=== PATIENT | male | born 1985 | race Caucasian/White ===

== ENCOUNTER 2016-12-20 06:53 | Emergency (ER) | payer BC ==
[~2016-12-20] VITALS: Ht 193 cm; Wt 111.1 kg
[2016-12-20 07:03] VITALS: BP 135/91
[2016-12-20] MEDS ORDERED: TETRACAINE 0.5% OPHTH SOLN 4ML OD ONE (07:30)
[2016-12-20] MEDS ORDERED: FLUORESCEIN OPHTH 1 MG STRIP OD ONE (07:30)
[2016-12-20] MEDS ORDERED: GENT3OPD OD (07:44)
[2016-12-20] MEDS ORDERED: IBUPROFEN 800 MG TAB PO ONE (07:45)
[2016-12-20] MEDS ORDERED: GENTAMICIN 0.3% OPHTH SOL 5 ML BTL OD ONE (07:45)
== END 2016-12-20 07:58 | disposition home or self-care (01) ==
LOC: M ED 07:39
DX: S05.01XA Injury of conjunctiva and corneal abrasion without foreign body, right eye, initial encounter (principal); X58.XXXA Exposure to other specified factors, initial encounter; Y92.89 Other specified places as the place of occurrence of the external cause; Y93.89 Activity, other specified; Y99.0 Civilian activity done for income or pay

== ENCOUNTER → 2019-03-08 | Outpatient (REF) | payer BC ==
[~2019-03-08] MED LIST: GENT0.3S36 OD
== END ==
LOC: M LAB REF 19:29
PROVIDERS: ATTEND Physician Assistant Medical
DX: J02.9 Acute pharyngitis, unspecified (principal)

== ENCOUNTER 2024-01-19 13:40 | Emergency (ER) | payer OTHER ==
[~2024-01-19] VITALS: Ht 190.5 cm; Wt 150.0 kg
[2024-01-19 15:34] LABS: BASO % 0.4 % (0.0-1.0); EOS # 0.1 10^3/uL (0.0-0.5); EOS % 2.9 % (0.0-3.0); HEMATOCRIT 39.4 % (42.0-52.0); HEMOGLOBIN 13.5 g/dl (13.5-17.5); LYMPH # 0.6 10^3/uL (1.5-5.0); LYMPH % 11.7 % (24.0-44.0); MEAN CORPUSCULAR HEMOGLOBIN 28.7 pg (27.0-33.0); MEAN CORPUSCULAR HGB CONC 34.3 g/dl (32.0-36.5); MEAN CORPUSCULAR VOLUME 83.8 fl (80.0-96.0); MONO # 0.9 10^3/uL (0.0-0.8); MONO % 19.1 % (2.0-8.0); NEUTROPHILS # 3.2 10^3/uL (1.5-8.5); NEUTROPHILS % 65.1 % (36.0-66.0); PLATELET COUNT, AUTOMATED 259 10^3/uL (150-450); WHITE BLOOD COUNT 4.9 10^3/uL (4.0-10.0)
[2024-01-19 15:56] LABS: CK-MB VALUE MASS 4.8 NG/ML (<3.6)
[2024-01-19 15:58] LABS: BLOOD UREA NITROGEN 14 MG/DL (9-23); CALCIUM LEVEL 9.1 MG/DL (8.5-10.1); CARBON DIOXIDE LEVEL 27 MMOL/L (20-31); CHLORIDE LEVEL 104 MMOL/L (98-107); CPK CREATINE PHOSPHOKINASE 172 U/L (46-171); CREATININE FOR GFR 0.94 MG/DL (0.70-1.30); GLOMERULAR FILTRATION RATE > 60.0 (>60); GLUCOSE, FASTING 90 MG/DL (60-100); MB/CK RELATIVE INDEX 2.79 (< OR =4); POTASSIUM SERUM 3.9 MMOL/L (3.5-5.1); SODIUM LEVEL 139 MMOL/L (136-145)
[2024-01-19 18:22] LABS: MAGNESIUM LEVEL 1.7 MG/DL (1.8-2.4)
[2024-01-19] MEDS ORDERED: FLON27.5 NARES (18:58)
[2024-01-19] MEDS ORDERED: BENZ200C70 PO (18:58)
[2024-01-19 19:22] VITALS: BP 119/76; TEMP 98.7; O2SAT 97
== END 2024-01-19 19:26 | disposition home or self-care (01) ==
LOC: M ED 13:40
DX: T78.40XA Allergy, unspecified, initial encounter (principal); R55 Syncope and collapse; R05.9 Cough, unspecified; F12.10 Cannabis abuse, uncomplicated; Z79.811 Long term (current) use of aromatase inhibitors; Z79.51 Long term (current) use of inhaled steroids